=== PATIENT | female | born 1945 | race Caucasian/White ===

== ENCOUNTER 2019-05-10 11:38 | Outpatient (CLI) | payer MEDICARE, OTHER, SELFPAY ==
--- NOTE | ~2019-05-10 | MMUS_ITS ---
EXAMINATION: MM diagnostic naomi LT w stephanie, US breast LT limited HISTORY: Left breast mass on screening mammogram TECHNIQUE: Additional 3-D tomosynthesis images of the left breast were performed and synthetic 2-D im ages were generated. CAD analysis was submitted and interpreted. High resolution limited left breast ultrasound was performed. COMPARISON: 03/10/2019, 03/03/2018, 02/13/2017, 01/24/2016 BREAST PARENCHYMAL COMPOSITION: There are scattered areas of fibroglandular density. FINDINGS: MAMMOGRAPHIC FINDINGS: There is a 7 mm oval, obscured, equal density mass in the middle third of the upper outer quadrant of the breast at the 2:00 location 6 cm from the nipple. ULTRASOUND: There is an 8 mm x 7 mm oval, circumscribed, parallel, hypoechoic mass with posterior acoustic enhanc ement and no internal vascularity at the 2:00 location 7 cm from the nipple corresponding to the mamm ographic finding in question. IMPRESSION: 1. Likely complicated cyst of the upper outer left breast corresponding to the mammographic finding i n question. 2. Recommend 6 month follow-up left diagnostic mammogram and targeted ultrasound. BI-RADS category 3, probably benign findings. Reviewed, dictated and finalized at location A. INTERFACE DEVELOPER IMPRESSION: 1. Likely complicated cyst of the upper outer left breast corresponding to the mammographic finding in question. 2. Recommend 6 month follow-up left diagnostic mammogram and targeted ultrasoun d. BI-RADS category 3, probably benign findings.
== END 2019-05-10 11:39 | disposition home or self-care (01) ==
LOC: ANHIMG 11:46
DX: R92.8 Other abnormal and inconclusive findings on diagnostic imaging of breast (principal)
CPT/HCPCS: 76642; 77061; 77065; 77066; G0279

== ENCOUNTER 2019-11-08 11:32 | Outpatient (CLI) | payer MEDICARE, OTHER, SELFPAY ==
--- NOTE | ~2019-11-08 | MM_ITS ---
EXAMINATION: MM diagnostic naomi BI w stephanie HISTORY: Follow-up left breast mass TECHNIQUE: Additional 3-D tomosynthesis images of the breasts were performed and synthetic 2-D images were generated. CAD analysis was submitted and interpreted. COMPARISON: Comparison to multiple prior studies sequentially, with oldest reviewed study dated 01/05. BREAST PARENCHYMAL COMPOSITION: Breast composed of scattered areas of fibroglandular density FINDINGS: The breasts are stable without evidence for malignancy. Interval resolution of mass in the upper outer quadrant of the left breast corresponding to complicated cyst seen on previous ultrasound . No suspicious masses, calcifications or architectural distortion to suggest malignancy. IMPRESSION: 1. No mammographic evidence for malignancy in either breast. 2. Routine yearly screening mammogram and regular clinical breast examination are recommended. BI-RADS Category 1: Negative Reviewed, dictated and finalized at location A. IMPRESSION: 1. No mammographic evidence for malignancy in either breast. 2. Routine yearly screening mammogram and regular clinical breast examination a re recommended. BI-RADS Category 1: Negative
== END 2019-11-08 11:33 | disposition home or self-care (01) ==
DX: N63.21 Unspecified lump in the left breast, upper outer quadrant (principal)
CPT/HCPCS: 77062; 77066; G0279

== ENCOUNTER 2020-12-06 10:26 | Outpatient (CLI) | payer MEDICARE, OTHER, SELFPAY ==
--- NOTE | ~2020-12-06 | MM_ITS ---
EXAMINATION: MM screening [facility] BI w stephanie HISTORY: Screening TECHNIQUE: Craniocaudal and mediolateral oblique 3-D tomosynthesis images were obtained and synthetic 2-D images were generated. CAD analysis was submitted and interpreted. COMPARISON: Comparison to multiple prior studies sequentially, with oldest reviewed study dated 12/2016. BREAST PARENCHYMAL COMPOSITION: There are scattered areas of fibroglandular density. FINDINGS: There is no evidence of suspicious mass, calcification, or architectural distortion to sugg est malignancy in either breast. There has been no suspicious interval change. IMPRESSION: 1. No mammographic evidence of malignancy. 2. Recommend routine screening mammography in one year. BI-RADS Category 1: Negative Reviewed, dictated and finalized at location A.
== END 2020-12-06 10:27 | disposition home or self-care (01) ==
LOC: ANHIMG 10:31
DX: Z12.31 Encounter for screening mammogram for malignant neoplasm of breast (principal)
CPT/HCPCS: 77063; 77067

== ENCOUNTER 2022-11-11 09:35 | Outpatient (CLI) | payer MEDICARE, OTHER, SELFPAY ==
--- NOTE | 2022-11-11 12:24 | ECG_ITS ---
Measurements Intervals [place] Rate: 52 P: 87 UT: 170 QRS: 7 QRSD: 102 T: 42 QT: 441 QTc: 411 Interpretive Statements SINUS BRADYCARDIA OTHERWISE NORMAL ECG COMPARED TO ECG 06/03/2018 10:56:24 NO SIGNIFICANT CHANGES Electronically Signed On 11-11-2022 14:10:02 CDT by Eid Ace M.D.
[2022-11-11 13:55] LABS: Basophils Percent Auto 0.5 % (0.2-1.2); Eosinophils Absolute Auto 0.2 K/mm3 (0-0.3); Eosinophils Percent Auto 2.5 % (0-4.4); Hematocrit 39.4 % (37.0-47.0); Hemoglobin 12.7 g/dL (12.0-15.0); Immature Granulocyte Absolute 0.03 K/mm3 (0.00-0.031); Immature Granulocyte Percent A 0.4 % (0-0.5); Lymphocytes Absolute Auto 0.99 K/mm3 (0.9-3.2); Lymphocytes Percent Auto 12.8 % (18.3-44.2); Mean Corpuscular HGB Conc 32.2 g/dl (32-36); Mean Corpuscular Hemoglobin 30.9 pg (26-34); Mean Corpuscular Volume 95.9 fl (80-100); Mean Platelet Volume 9.8 fl (7.4-10.4); Monocytes Absolute Auto 0.6 K/mm3 (0.1-0.6); Monocytes Percent Auto 7.3 % (2.6-8.5); Neutrophils Absolute Auto 5.9 K/mm3 (1.3-6.7); Neutrophils Percent Auto 76.5 % (45.5-73.1); Platelet Count Result 212 k/mm3 (150-375); Red Blood Count 4.11 M/mm3 (4.2-5.4); Red Cell Distribution Width 13.2 % (11.5-14.5); White Blood Count 7.7 K/mm3 (4.5-10.0)
[2022-11-11 14:13] LABS: Anion Gap 6 mmol/L (8-16); Blood Urea Nitrogen 20 mg/dL (7-17); Calcium 9.8 mg/dL (8.4-10.2); Carbon Dioxide 30 mmol/L (22-30); Chloride 101 mmol/L (98-107); Estimated Glomerular Filt Rate > 60; Glucose 83 mg/dL (65-110); Potassium 3.9 mmol/L (3.4-5.0); Sodium 137 mmol/L (137-145)
== END 2022-11-11 09:36 | disposition home or self-care (01) ==
LOC: ANHSURGERY 09:45
PROVIDERS: Anesthesiology; PCP Internal Medicine; Visit Provider Orthopaedic Surgery
DX: Z01.818 Encounter for other preprocedural examination (principal); Z51.81 Encounter for therapeutic drug level monitoring; M12.811 Other specific arthropathies, not elsewhere classified, right shoulder; I10 Essential (primary) hypertension; M75.101 Unspecified rotator cuff tear or rupture of right shoulder, not specified as traumatic; R00.1 Bradycardia, unspecified
CPT/HCPCS: 36415; 80048; 85025; 87081; 93005

== ENCOUNTER 2022-12-10 00:46 | Day surgery (SDC) | payer MEDICARE, OTHER, SELFPAY ==
[2022-11-11 11:33] VITALS: BMI 27.4
--- NOTE | 2022-11-11 12:01 | PC.NURSE ---
Report to the Outpatient Waiting Room, entrance under the green pavilion located off [facility], at time __10:00AM on date __12/10/22 . Planned Procedure Time: ___12:00PM . Time changes happen often and if your time is changed the preop area will call you the afternoon before. - You and your visitor will be asked to self-screen and do not enter if you have any COVID symptoms. - A mask is optional within the hospital at this time. Patients may have clear liquids (water, carbonated beverages, clear teas, apple juice) until 3 hours prior to surgery with a maximum of 20 ounces. - No food from midnight until time of surgery Take the following medications with a SIP of water the morning of surgery: ___AMLODIPINE, METHIMAZOLE DO NOT STOP ANY OF YOUR OTHER PRESCRIPTION MEDICATIONS PRIOR TO SURGERY ?EXCEPT THE FOLLOWING Medications to discontinue per physician ___HOLD ASPIRIN AND ADVIL 7 DAYS PRE-OP PER DR CORREIA- LAST DOSE 12/03/22 HOLD ALL VITAMINS/SUPPLEMENTS 3 DAYS PRE-OP PER ANESTHESIA- LAST DOSE 12/06/22 Please no make-up, nail wolof, hairspray, perfume, deodorant, or body powder the day of surgery. No jewelry (including any body piercings) or valuables the day of surgery, leave them at home. Please take a shower or bath the night before, or the morning of, surgery with an antibacterial soap. Wear comfortable, loose fitting clothing. Children are encouraged to wear pajamas. - Jewelry must be removed prior to entering the operating room. Rings and piercings that are not removed may be cut off. - The hospital will not accept responsibility for valuables. - Please leave all valuables, including medications, at home the day of surgery. If you are going home after surgery, a licensed mail truck driver must drive you home. - NO public transportation without another adult if you receive anesthesia. - We recommend that an adult stay with you for 24 hours following discharge. - We also recommend that you do not drive, make important decision, drink alcoholic beverages, or take any drugs that were not prescribed by your health care provider for at least 24 hours after your discharge time. Follow any additional instructions given to you from your surgeon. If you or anyone in your household have experienced Covid symptoms in the past week, please notify your surgeon or the nurse liaison at the phone number below for possible testing. Telephone instructions given to __PATIENT and asked if any additional questions and then verbalized understanding. Patient advised to call surgeon office or pre surgery nurse liaison [phone] if any additional questions.
[2022-11-11 12:31] VITALS: BP 151/54; PULSE 54; RESP 16; TEMP 36.6; O2SAT 100
[2022-12-10] VITALS (14 sets, daily range): BP systolic 122–152; BP diastolic 58–75; PULSE 50–67; RESP 12–18; TEMP 36–36.6; O2SAT 96–100
--- NOTE | ~2022-12-10 | XR_ITS ---
EXAMINATION: XR shoulder RT min 2V DATE: 12/10/2022 10:15 INDICATION: Right reverse total shoulder arthroplasty TECHNIQUE: AP and transscapular Y views of the right shoulder were obtained. COMPARISON: 05/29/2022 FINDINGS: Interval placement of a reverse right total shoulder arthroplasty which appears well seated in near a natomic alignment. No fracture identified. Moderate acromioclavicular osteoarthritis. Subacromial spu rs and adjacent small heterotopic ossicles. There are couple circular opacities likely external to th e patient which project over the right supraclavicular region and lower portion of the right upper ar m. There are bridging osteophytes at multiple levels in the spine, consistent with diffuse idiopathic skeletal hyperostosis (DISH). Soft tissues are unremarkable. Visualized portion of the lungs are cl ear. IMPRESSION: Reverse right total shoulder arthroplasty in near-anatomic alignment without acute osseous abnormalit y. Reviewed, dictated and finalized at location A. IMPRESSION: Reverse right total shoulder arthroplasty in near-anatomic alignment without ac barbara osseous abnormality.
[2022-12-10] MEDS: ACETAMINOPHEN 500 MG TABLET 1000 MG PO ×4 (06:31→23:38)
--- NOTE | 2022-12-10 06:48 | WPDANESEPPF ---
Anes - Initial Pre Proc Eval Procedure: Operation Date: 12/10/22 07:30 Proposed Procedures p Right Reverse Total Shoulder Arthroplasty - Renzo Odell MD Date/Time: 12/10/22 06:48 Surgeon: Renzo Odell MD Pre Op Diagnosis: right rotator cuff arthropathy Patient Data Age: 77 Gender: F Height: 1.63 m Weight: 72.5 kg Last Vital Signs Temp 36.6 C 11/11/22 12:31 Pulse 54 L 11/11/22 12:31 Resp 16 11/11/22 12:31 BP 151/54 H 11/11/22 12:31 Pulse Ox 100 11/11/22 12:31 O2 Del Method Room Air 11/11/22 12:31 Allergies Allergy/AdvReac Type Severity Reaction Status Date / Time Sulfa (Sulfonamide Allergy Severe Itching, Verified 12/02/22 10:01 Antibiotics) N/V morphine AdvReac Severe LIGHTHEADED/PASSING Verified 12/02/22 10:01 OUT/N/V Home Medications Medication Instructions Recorded Confirmed Type Bifidobacterium infantis 4 mg 4 mg PO DAILY 05/29/22 12/10/22 History capsule (Align) amlodipine 5 mg tablet 5 mg PO QAM 05/29/22 12/10/22 History aspirin 81 mg tablet,delayed 81 mg PO DAILY 05/29/22 12/10/22 History release atorvastatin 40 mg tablet 40 mg PO HS 05/29/22 12/10/22 History cholecalciferol (vitamin D3) 25 50 mcg PO DAILY 05/29/22 12/10/22 History mcg (1,000 unit) capsule famotidine 20 mg tablet (Pepcid) 20 mg PO DAILY PRN Indigestion 05/29/22 12/10/22 History hydrochlorothiazide 25 mg tablet 25 mg PO QAM 05/29/22 12/10/22 History mecobalamin (vitamin B12) 500 mcg 500 mcg PO DAILY 05/29/22 12/10/22 History chewable tablet mesalamine 1.2 gram tablet,delayed 2.4 g PO QACDINNER 05/29/22 12/10/22 History release methimazole 5 mg tablet 5 mg PO EVERY OTHER DAY 05/29/22 12/10/22 History multivitamin (Daily Multi-Vitamin 1 tablet PO DAILY 05/29/22 12/10/22 History tablet) psyllium husk 3.4 gram/5.4 gram 1 tsp PO DAILY 05/29/22 12/10/22 History oral powder (Metamucil) acetaminophen 500 mg capsule 500 mg PO Q6H PRN Pain 11/11/22 12/10/22 History calcium 600 mg capsule 600 mg PO BID 11/11/22 12/10/22 History ibuprofen 200 mg tablet (Advil) 400 mg PO QAM 11/11/22 12/10/22 History methimazole 5 mg tablet 7.5 mg PO EVERY OTHER DAY 11/11/22 12/10/22 History potassium chloride 10 mEq 20 meq PO QAM 11/11/22 12/10/22 History tablet,extended release ramipril 10 mg capsule 10 mg PO QAM 11/11/22 12/10/22 History vit C 250 mg-vit E 90 mg-zinc 40 1 tablet PO BID 11/11/22 12/10/22 History mg-copper 1 [id number] capsule (PreserVision AREDS-2) Patient hx anesthesia problems: none Family hx anesthesia problems: none Results Review: All pre-operative results and documents have been reviewed as part of the pre-operative evaluation. [facility] Past Medical History Medical History Kidney stones (~09/09/11) Surgical History Surgical History H/O carpal tunnel repair (~10/15/18) RT HAND H/O carpal tunnel repair (~01/02/22) LEFT HAND H/O: hysterectomy (~05/31/14) History of left knee replacement (~12/30/11) History of nephrectomy, left (~08/20/12) Family History Family History Father Leukemia Mother Arthritis Social History Social History Smoking status: Never smoker Alcohol intake: never Substance use: never Lack of Transportation: No Lack of Food: Never True Current Housing: I Have Housing Concerned About Future Housing: No Difficulty Paying Gas/Electric Bills: No Difficulty Paying for Meds: No Currently Unemployed: No Education: Bachelor's Degree Difficulty w/ Childcare or Family Care: No Living arrangements: alone Spiritual care concerns: No Anes - Eval Final PreProcedure Day of Procedure 12/10/22 06:48 Patient weight: overweight Heart: regular rate and rhythm Patricia
[2022-12-10] MEDS: LACTATED RINGERS 1,000 ML 30 ML IV CONT ×2 (06:55→10:01)
--- NOTE | 2022-12-10 06:57 | WPDANESPNB ---
Anes - Peripheral Nerve Block Date/Time: 12/10/22 06:57 I have discussed with the patient/family/POA the placement of a peripheral nerve block for post-operative pain management, including associated risks, benefits, complications, and side effects. Alternative methods of post-operative analgesia were detailed. Questions were solicited and answers provided to the satisfaction of the patient/family/POA. Time-Out: A pre-procedural Time-Out was completed immediately before starting the procedure and confirmed: Patient Identification, Site, Procedure, Patient Position and the Availability of Requisite Equipment. Clinical Indications: Acute post-operative pain management requested by the operative surgeon. Nerve Block Insertion Note Anes-nerve block: interscalene right Patient position: supine Skin prep: chlorhexidine Needle: 22 gauge, stimulating, insulated echogenic needle. Needle length: 50 mm Technique: ultrasound Injectate: bupivacaine 0.5% with epi 5 mcg/ml (30cc- no epi) Observations: tolerated well Complications: none Procedure start time:: 718 Procedure end time:: 723
--- NOTE | 2022-12-10 07:24 | WPDHPUPDATE1 ---
History and Physical Update Update Date/Time: 12/10/22 07:24 History and Physical has been reviewed, including an updated exam of the patient. There are NO changes in the patient's condition. Risks, benefits, and alternatives have been discussed and questions answered. Patient agrees to proceed with procedure.
[2022-12-10] MEDS: TRANEXAMIC ACID 1,000MG/ISO100 1,000 MG/100 ML BAG 200 MG IVPB (07:30)
[2022-12-10] MEDS: ceFAZolin 2 GM/D5W 50 ML 2 GM/50 ML BAG IVPB ×3 (07:59→23:38)
[2022-12-10] MEDS: VANCOMYCIN HCL 1,000 MG VIAL 1000 MG TOPICAL (08:54)
--- NOTE | 2022-12-10 12:11 | ADMGEN ---
This patient, Gerri Bueno, was admitted to 2 Medical Room 258-. Patient/family oriented to hospital policies and general routines including ID bracelet, bed and alarms, visiting hours, pain management, procedures, bathroom and other care routines, personal items, smoking policy, room service/diet, and visiting hours. Information on how to activate the Rapid Response Team has been discussed. Patient/Family are encouraged to report perceived risks to care and to ask questions if they do not understand what they are told or what they should do.
[2022-12-10] MEDS: ONDANSETRON INJ 4 MG/2 ML VIAL IV PUSH (12:42)
[2022-12-10] MEDS: SODIUM CHLORIDE 0.9% IV 1,000 ML 125 ML IV CONT (12:45)
--- NOTE | 2022-12-10 13:17 | WPDCN ---
Assessment and Plan Assessment and plan (1) Right rotator cuff tear arthropathy: Code(s): M75.101 - Unspecified rotator cuff tear or rupture of right shoulder, not specified as traumatic; M12.811 - Other specific arthropathies, not elsewhere classified, right shoulder Status: Acute Assessment and Plan: Postoperative day 0 status post reversal shoulder arthroplasty. Wound care, pain control, DVT prophylaxis deferred to ortho. (2) Hypertension: Code(s): I10 - Essential (primary) hypertension Status: Acute Assessment and Plan: Blood pressures were reviewed and they have been stable postoperatively. Resume antihypertensives and monitor daily. (3) Hyperlipidemia: Code(s): E78.5 - Hyperlipidemia, unspecified Status: Acute Assessment and Plan: Continue statin and check LFTs in a.m.. (4) Hyperthyroidism: Code(s): E05.90 - Thyrotoxicosis, unspecified without thyrotoxic crisis or storm Status: Acute Assessment and Plan: No signs of acute issues. Check TSH, T4, and continue methimazole. (5) Ulcerative colitis: Code(s): K51.90 - Ulcerative colitis, unspecified, without complications Status: Acute Assessment and Plan: No acute issues. Continue mesalamine. Plan Thank you for allowing us to participate in this patient's care. Please do not hesitate to contact us with any questions. HPI Data of Consult Date/Time: 12/10/22 13:15 Requesting Physician: Renzo Odell MD Consult Narrative Reason for consult: Postoperative medical management. Narrative: This is a very pleasant 77-year-old female with osteoarthritis, hypertension, hyperlipidemia, hyperthyroidism, and ulcerative colitis whom the hospitalist service has been consulted for help managing her medical conditions postoperatively. She reports longstanding pain in her right shoulder not amenable to conservative outpatient treatment she elected for replacement today. Her surgery was performed under general anesthesia with regional block. No immediate complications were documented an estimated blood loss was 100 mL. She was nauseated after surgery and she has not had much of an appetite. Her pain is pretty well controlled. She denies fever, chills, sweats, chest pain, shortness a breath, and vomiting. She lives alone and does not have much help available to her and she is hoping to go to rehab on discharge. Review of Systems Review of Systems: Twelve systems were reviewed. No fever, chills, or sweats. No recent cold or flu symptoms. No history of venous thromboembolism. Except as documented, all other systems were reviewed and are negative. [facility] Past Medical History Medical History (Updated 12/10/22 @ 21:18 by Odette Jalloh PA-C) Arthritis Cancer of kidney (2012) Status post nephrectomy. Endometrial cancer (2014) Hyperlipidemia Hypertension Hyperthyroidism Kidney stones Ulcerative colitis Surgical History Surgical History (Updated 12/10/22 @ 13:23 by Odette Jalloh PA-C) History of arthroplasty of right knee (11/2004) History of carpal tunnel release History of cataract extraction with lens replacement History of cystoscopy History of hysterectomy History of left knee replacement (12/30/11) History of left nephrectomy (08/20/12) History of lithotripsy History of total abdominal hysterectomy and bilateral salpingo-oophorectomy (2014) History of ureter stent Family History Family History Father Leukemia Mother Arthritis Social History Social History (Updated 12/10/22 @ 13:25 by Odette Jalloh PA-C) Social History: Surrogate medical decision maker: Dania Moser, sibling. Code status: Full code. Smoking status: Never smoker Second hand tobacco smoke exposure: No Alcohol intake: never Substance use: never Lack of Transportation: No Lack of F
--- NOTE | 2022-12-10 13:57 | W.PM.PROC2 ---
Procedure Note - Detailed Date of Procedure 12/10/22 Pre-op Diagnosis right rotator cuff arthropathy Post-op Diagnosis Same Procedure Performed Reverse total shoulder arthroplasty, right. Surgeon Renzo Odell MD [employer] Debra Alfaro PA-C Anesthesia General and Regional (Interscalene block.) Findings Massive cuff tear with moderate superior and posterior glenoid wear. Bone quality satisfactory. Humeral head bone graft added to the humerus and upsized to size 1. Deltoid intact. Cephalic vein suture ligated. Description of Procedure The patient was given an interscalene block in the preoperative area. Preoperative antibiotics were given. The patient was transferred to the operating room and a general anesthetic was administered. The beach chair position was used at 45 degrees. All bony prominences were padded. The head was carefully stabilized on the [facility] head of marketing. A sterile prep and drape was performed in the usual manner with ChloraPrep. A longitudinal incision was created at the anterior shoulder just lateral to the deltopectoral interval. Hydrogen peroxide was placed on the incision and then rinsed after one minute. Careful dissection was performed to expose the interval and protect the cephalic vein. The vein was retracted medially. The upper border of the pectoralis was released. Anterior circumflex vessel branches were suture ligated. A subscapularis peel was performed. The inferior capsule was released, exposing the humeral head. Osteophytes were removed. Care was taken to stay on bone to protect the axillary nerve. The anatomic head cut was taken with the oscillating saw. The guide pin was placed, central drilling performed, and the broach trial inserted. The neck anteversion and inclination were carefully assessed. The cut protector was placed, and attention was turned to the glenoid. Retractors were placed. Releases were carried out for exposure. The subscapularis was mobilized, the inferior capsule and long head of triceps released, and the superior and middle glenohumeral ligaments released as well. Labral tissue was resected as needed. The sizing template was used to assess the baseplate position low on the glenoid. A guide pin was placed. Minimal reaming was used to accomplish a flat surface without violating the subchondral bone. Version was corrected according to preoperative templating. The boss was drilled, and the real component was impacted into position. Supplemental locking screws were placed centrally, superiorly, and 2 inferiorly. The glenosphere was impacted into the taper. The proximal humerus was reamed for the inset component. The humeral components were trialed. The real humeral stem, tray, and insert were impacted into position. The shoulder was copiously irrigated periodically with pulsatile lavage. The shoulder was reduced and stability confirmed. 1 gram of Vancomycin powder was placed in the joint. The pectoralis tendon was repaired. The deltopectoral space was reapproximated with number 1 Vicryl. The remaining tissue was closed with 0 Quill and 2-0 Quill running suture and steri-strips. A sterile silver occlusive dressing and shoulder immobilizer were placed. The patient was transferred to the recovery room. Physician help desk assistant, Debra Alfaro PA-C, required for surgery; including patient positioning, draping, tissue retraction, maintaining instrument position, wound closure, and dressing placement. Implants Shoulder Innovations reverse TSA size 1 stem. +0 polyethylene insert. 10 degree augmented baseplate. 33+3 mm glenosphere. Estimated Blood Loss -100.0 Drains No Pathology None sent Complications No immediate complications Condition Stable Disposition PACU [facility] Billing Surgery - Charge Forward: Surgery Billing
[2022-12-10] MEDS: CALCIUM CARBONATE (OSCAL) 500 MG TABLET PO (17:50)
[2022-12-10] MEDS: MELOXICAM 7.5 MG TABLET PO (17:50)
[2022-12-10] MEDS: ASPIRIN 81 MG ENTERIC TABLET PO (17:50)
[2022-12-10] MEDS: SENNA/DOCUSATE SODIUM TABLET 2 TAB PO (20:25)
[2022-12-10] MEDS: ATORVASTATIN 40 MG TABLET PO (20:25)
[2022-12-11 00:12] VITALS: BP 143/69; PULSE 53; RESP 18; TEMP 36.2; O2SAT 99
[2022-12-11 05:02] VITALS: BP 150/60; PULSE 54; RESP 20; TEMP 36.3; O2SAT 99
[2022-12-11] MEDS: ACETAMINOPHEN 500 MG TABLET 1000 MG PO ×3 (05:23→17:14)
[2022-12-11] MEDS: oxyCODONE HCL (*CRX) 5 MG TAB IR PO (05:23)
[2022-12-11 05:42] LABS: Basophils Percent Auto 0.3 % (0.2-1.2); Eosinophils Absolute Auto 0.1 K/mm3 (0-0.3); Eosinophils Percent Auto 0.6 % (0-4.4); Hematocrit 32.5 % (37.0-47.0); Hemoglobin 10.5 g/dL (12.0-15.0); Immature Granulocyte Absolute 0.03 K/mm3 (0.00-0.031); Immature Granulocyte Percent A 0.3 % (0-0.5); Lymphocytes Absolute Auto 0.77 K/mm3 (0.9-3.2); Lymphocytes Percent Auto 8.9 % (18.3-44.2); Mean Corpuscular HGB Conc 32.3 g/dl (32-36); Mean Corpuscular Hemoglobin 31.3 pg (26-34); Mean Platelet Volume 9.9 fl (7.4-10.4); Monocytes Absolute Auto 0.9 K/mm3 (0.1-0.6); Monocytes Percent Auto 10.7 % (2.6-8.5); Neutrophils Absolute Auto 6.8 K/mm3 (1.3-6.7); Neutrophils Percent Auto 79.2 % (45.5-73.1); Platelet Count Result 157 k/mm3 (150-375); Red Blood Count 3.35 M/mm3 (4.2-5.4); White Blood Count 8.6 K/mm3 (4.5-10.0)
[2022-12-11 05:57] LABS: Alanine Aminotransferase 15 U/L (6-35); Albumin Level 3.1 g/dL (3.5-5.1); Alkaline Phosphatase 67 U/L (38-126); Anion Gap 5 mmol/L (8-16); Aspartate Amino Transferase 22 U/L (14-36); Bilirubin,Total 0.8 mg/dL (0.2-1.3); Blood Urea Nitrogen 15 mg/dL (7-17); Calcium 8.3 mg/dL (8.4-10.2); Carbon Dioxide 26 mmol/L (22-30); Chloride 104 mmol/L (98-107); Estimated CRCL calculation 65 ml/min; Estimated Glomerular Filt Rate > 60; Glucose 89 mg/dL (65-110); Magnesium 1.9 mg/dL (1.6-2.3); Potassium 3.5 mmol/L (3.4-5.0); Sodium 135 mmol/L (137-145)
[2022-12-11 06:31] LABS: Free T4 Free Thyroxine 1.07 ng/mL (0.78-2.19)
--- NOTE | 2022-12-11 07:27 | PM.IMPN ---
Progress Note: A&P Assessment and Plan (1) Right rotator cuff tear arthropathy: Code(s): M75.101 - Unspecified rotator cuff tear or rupture of right shoulder, not specified as traumatic; M12.811 - Other specific arthropathies, not elsewhere classified, right shoulder Status: Acute Assessment and Plan: Postoperative day 1 status post reversal shoulder arthroplasty. Wound care, pain control, DVT prophylaxis deferred to ortho. Working with PT/OT On track to go to [facility] for rehab (2) Hypertension: Code(s): I10 - Essential (primary) hypertension Status: Acute Assessment and Plan: Blood pressures were reviewed and they have been stable postoperatively. Resume antihypertensives and monitor daily. (3) Hyperlipidemia: Code(s): E78.5 - Hyperlipidemia, unspecified Status: Acute Assessment and Plan: Continue statin and check LFTs in a.m. (4) Hyperthyroidism: Code(s): E05.90 - Thyrotoxicosis, unspecified without thyrotoxic crisis or storm Status: Acute Assessment and Plan: No signs of acute issues. Check TSH, T4, and continue methimazole. (5) Ulcerative colitis: Code(s): K51.90 - Ulcerative colitis, unspecified, without complications Status: Acute Assessment and Plan: No acute issues. Continue mesalamine. Plan Thank you for allowing us to participate in this patient's care. Please do not hesitate to contact us with any questions. Subjective Date/time seen: 12/11/22 07:27 Interval history: HPI obtained from the chart, This is a very pleasant 77-year-old female with osteoarthritis, hypertension, hyperlipidemia, hyperthyroidism, and ulcerative colitis whom the hospitalist service has been consulted for help managing her medical conditions postoperatively. She reports longstanding pain in her right shoulder not amenable to conservative outpatient treatment she elected for replacement today. Her surgery was performed under general anesthesia with regional block. No immediate complications were documented an estimated blood loss was 100 mL. She was nauseated after surgery and she has not had much of an appetite. Her pain is pretty well controlled. She denies fever, chills, sweats, chest pain, shortness a breath, and vomiting. She lives alone and does not have much help available to her and she is hoping to go to rehab on discharge. 12/11: Patient is doing well postoperatively. She has already worked with physical therapy this morning. She is having pain which is more than she expected since her nerve block has worn off. She says that her pain medication does seem to help some. I encouraged her to stay on top of her pain. It appears she has only had one 5 mg of Oxy so far. Yesterday she had some nausea but today she was able to eat part of an exam which and some nielsen for breakfast without nausea or vomiting. She says that she has been able to void postoperatively. Her right arm is in a sling with ice applied and elevated. She has no acute concerns at this time. She says that she has agreed for [facility] re[facility] placement Review of Systems Review of Systems: All systems reviewed & are unremarkable except as noted in HPI and below Exam Narrative: General: well appearing, well developed, well nourished, appears stated age. HEENT: normocephalic, atraumatic. Mucous membranes moist. EOMI, PERRLA, bilateral sclera anicteric, no conjunctival injection. Neck supple without JVD, lymphadenopathy, or bruit. Respiratory: clear to auscultation bilaterally. No rales/rhonic/wheezes. Cardiovascular: Regular rate and rhythm, normal S1-S2 upon auscultation. No murmurs, rubs, or clicks. PMI is nondisplaced, capillary re-fill less than 3 second. Abdomen: Soft, flat, no pulsatile masses, non-distended and non-tender. No rebound, no guarding. No CVA tenderness, no hepatosplenomegaly. Bowel sounds present to all four quadrants. No
[2022-12-11 08:00] VITALS: PULSE 50; RESP 16; O2SAT 100
--- NOTE | 2022-12-11 08:28 | PM.PNORT ---
Progress Note: A&P Assessment and Plan (1) Right rotator cuff tear arthropathy: Code(s): M75.101 - Unspecified rotator cuff tear or rupture of right shoulder, not specified as traumatic; M12.811 - Other specific arthropathies, not elsewhere classified, right shoulder Status: Acute (2) Status post reverse total arthroplasty of right shoulder: Code(s): Z96.611 - Presence of right artificial shoulder joint Status: Acute Plan Postop day 1: Right reverse total shoulder arthroplasty. Patient is progressing well from surgery. Block has warn off. Pain controlled. She is having trouble ambulating. She typically relies heavily on pushing herself up with her arms but is unable to do that with her shoulder replacement. 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 She lives at home and does not think she can perform normal daily tasks. She would benefit from inpatient rehab at discharge. Care-coordination is consulted. Continue PT/OT. Subjective Subjective Date/Time Seen: 12/11/22 08:28 Interval history: Patient resting comfortably in bed. Patient having trouble ambulating. Mild pain. Block has warn off. No numbness or tingling. No CP, SOB, ABD pain. Review of Systems Review of Systems: All systems reviewed & are unremarkable except as noted in HPI and below Exam Narrative: Normal weight 77 y/o Female. Resting comfortably in chair. Wearing sling. Dressing dry and intact with no drainage. Moderate swelling. Moderate ecchymosis. No erythema. No hematoma. Range of motion limited due to pain. Neurologic status intact. No varicosities. Distal pulses palpable. Objective Data Vital Signs Vital Signs: Vital Signs - 24 hr 12/10/22 10:01 12/10/22 10:15 12/10/22 10:30 Temperature 97.4 F L Pulse Rate 67 58 L 56 L Respiratory Rate 12 13 15 Blood Pressure 129/58 L 146/71 H 133/75 Pulse Oximetry 98 100 100 Oxygen Delivery Simple Face Mask Simple Face Mask Room Air Oxygen Flow Rate 6 10 12/10/22 10:45 12/10/22 11:00 12/10/22 11:15 Temperature Pulse Rate 52 L 50 L 50 L Respiratory Rate 13 14 13 Blood Pressure 145/64 H 142/64 H 142/69 H Pulse Oximetry 96 96 96 Oxygen Delivery Room Air Room Air Room Air Oxygen Flow Rate 12/10/22 11:45 12/10/22 12:00 12/10/22 12:30 Temperature 96.8 F L 96.9 F L 97.0 F L Pulse Rate 53 L 54 L 62 Respiratory Rate 14 14 16 Blood Pressure 136/61 127/59 L 142/63 H Pulse Oximetry 98 99 99 Oxygen Delivery Oxygen Flow Rate 12/10/22 13:45 12/10/22 13:30 12/10/22 18:30 Temperature 97.6 F 97.7 F Pulse Rate 54 L 51 L Respiratory Rate 16 14 Blood Pressure 122/60 129/59 L Pulse Oximetry 100 100 Oxygen Delivery Room Air Oxygen Flow Rate 12/10/22 20:37 12/10/22 21:41 12/11/22 00:12 Temperature 97.3 F L 97.2 F L Pulse Rate 50 L 53 L Respiratory Rate 18 18 Blood Pressure 151/66 H 143/69 H Pulse Oximetry 99 99 99 Oxygen Delivery Room Air Oxygen Flow Rate 12/11/22 05:02 Temperature 97.4 F L Pulse Rate 54 L Respiratory Rate 20 Blood Pressure 150/60 H Pulse Oximetry 99 Oxygen Delivery Oxygen Flow Rate Intake/Output Intake/Output: Intake & Output 12/08/22 12/09/22 12/10/22 12/11/22 23:59 23:59 23:59 23:59 Intake Total 2100 290 Output Total 200 Balance 2100 90 Meds/Results Medications: Active Medications Generic Name Dose Route Start Last Admin Trade Name Freq PRN Reason Stop Dose Admin Acetaminophen 1,000 mg 12/10/22 12:00 12/11/22 05:23 Acetaminophen 500 Mg Tablet PO 1,000 mg Q6HR CARLOS Administration Amlodipine Besylate 5 mg 12/11/22 09:00 Amlodipine Besylate 5 Mg Tablet PO QAM [facility] Aspirin 81 mg 12/10/22 17:00 12/10/22 17:50 Aspirin 81 Mg Enteric Tablet PO 81 mg BID CARLOS Administration Atorvastatin Calcium 40 mg 12/10/22 21:00 12/10/22 20:25 Atorvastatin 40 Mg Tablet PO 40 mg HS [facility]
[2022-12-11] MEDS: ramipriL 5 MG CAPSULE 10 MG PO (08:38)
[2022-12-11] MEDS: FAMOTIDINE 20 MG TABLET PO (08:39)
[2022-12-11] MEDS: ASPIRIN 81 MG ENTERIC TABLET PO ×2 (08:39→17:14)
[2022-12-11] MEDS: CHOLECALCIFEROL 1,000 UNITS TABLET 2000 UNITS PO (08:39)
[2022-12-11] MEDS: MELOXICAM 7.5 MG TABLET PO ×2 (08:39→17:14)
[2022-12-11] MEDS: methiMAzole 5 MG TAB PO (08:39)
[2022-12-11] MEDS: hydroCHLOROthiazide 25 MG TABLET PO (08:39)
[2022-12-11] MEDS: POTASSIUM CHLORIDE 20 MEQ ER TABLET PO (08:39)
[2022-12-11] MEDS: CALCIUM CARBONATE (OSCAL) 500 MG TABLET PO ×2 (08:39→17:14)
[2022-12-11] MEDS: SENNA/DOCUSATE SODIUM TABLET 2 TAB PO (08:39)
[2022-12-11] MEDS: polyethylene glycoL 3350 17 GM POWD.PACK PO (08:40)
[2022-12-11] MEDS: ceFAZolin 2 GM/D5W 50 ML 2 GM/50 ML BAG IVPB (08:40)
[2022-12-11] MEDS: amLODIPine BESYLATE 5 MG TABLET PO (08:41)
[2022-12-11 09:41] LABS: Free T4 Free Thyroxine Reflex 1.04 ng/dL (0.78-2.19)
[2022-12-11 10:00] VITALS: BP 118/43; PULSE 50; RESP 16; TEMP 36.6; O2SAT 100
[2022-12-11 10:45] LABS: Total Triiodothyronine (T3) 0.86 NG/ML (0.97-1.69)
[2022-12-11] MEDS: traMADol HCL (*CRX) 50 MG TABLET PO (11:24)
--- NOTE | 2022-12-11 13:25 | WPDANESPN ---
Anes - Prog Note Post-Op Date/Time: 12/11/22 13:25 Cardiovascular status: normal Respiratory status: normal Airway patency: baseline Mental status: baseline Post-Op hydration status: normal Vital Signs: Last Vital Signs Temp 36.6 C 12/11/22 10:00 Pulse 50 L 12/11/22 10:00 Resp 16 12/11/22 10:00 BP 118/43 L 12/11/22 10:00 Pulse Ox 100 12/11/22 10:00 O2 Del Method Room Air 12/11/22 08:00 O2 Flow Rate 10 12/10/22 10:15 Pain Score (VAS): 05/17 I/O: Intake & Output 12/10/22 12/11/22 12/11/22 23:59 07:59 15:59 Intake Total 1250 290 120 Output Total 200 Balance 1250 90 120 Laboratory Tests 12/11/22 04:56 12/11/22 04:56 12/11/22 12/11/22 04:56 04:56 WBC 8.6 RBC 3.35 L Hgb 10.5 L Hct 32.5 L MCV 97.0 MCH 31.3 MCHC 32.3 RDW 13.0 Plt Count 157 MPV 9.9 Immature Gran % (Auto) 0.3 Neut % (Auto) 79.2 H Lymph % (Auto) 8.9 L [place] % (Auto) 10.7 H Eos % (Auto) 0.6 Baso % (Auto) 0.3 Lymph # (Auto) 0.77 L [place] # (Auto) 0.9 H Eos # (Auto) 0.1 Baso # (Auto) 0.0 Abs Immat Gran (auto) 0.03 Absolute Neuts (auto) 6.8 H Absolute Nucleated RBC 0.0 Nucleated RBC % 0.0 Sodium 135 L Potassium 3.5 Chloride 104 Carbon Dioxide 26 Anion Gap 5 L BUN 15 D Creatinine 0.60 L Estim Creat Clear Calc 65 Estimated GFR > 60 Glucose 89 Calcium 8.3 L Magnesium 1.9 Total Bilirubin 0.8 Direct Bilirubin 0.0 AST 22 ALT 15 Alkaline Phosphatase 67 Total Protein 6.0 L Albumin 3.1 L TSH (Reflex) 0.160 L Free T4 1.07 1.04 Total T3 0.86 L Post-procedural complaints: none Patient Feedback: Patient satisfied with anesthetic care. Other Findings: patient reports regional nerve block offered great pain relief
--- NOTE | 2022-12-11 13:45 | PM.DS ---
DS: Admitting Diagnosis Discharge Date 12/11/22 Admitting Diagnosis Rotator cuff arthropathy. DS: Discharge Diagnosis Discharge Diagnosis (1) Status post reverse total arthroplasty of right shoulder: Code(s): Z96.611 - Presence of right artificial shoulder joint Status: Acute Assessment and Plan: Postop day 1: Right reverse total shoulder arthroplasty. Patient tolerated procedure well. No complications. Pain manageable with pain medication. No numbness or tingling. Patient has trouble ambulating and typically requires a walker. She relies on her shoulders to lift herself out of a chair. She lives at home by herself. She will benefit from acute rehab. We had a lengthy discussion regarding postoperative wound care, limitations, expectations, and exercises. Patient shows good understanding. He has had initial physical therapy and is tolerating it well. DVT prophylaxis: 81 mg baby aspirin b.i.d. for 14 days. Pain medication: Percocet. Ibuprofen. Patient has followup appointment with Dr. Odell in 3 weeks. DS: Summary Hospital Course Hospital Course: Patient tolerated procedure well, without complications. Patient has had OT/PT. Tolerating it well. Will benefit from acute rehab. Status at Discharge Functional status at discharge: independent ambulation Overall status at discharge: patient is progressing back to baseline Time Spent with Patient Time attestation: Total time spent providing and/or coordinating discharge services: Exam Narrative: Normal weight Female. Resting comfortably in bed. Wearing sling. Dressing dry and intact with no drainage. Moderate swelling. Moderate ecchymosis. No erythema. No hematoma. Range of motion limited due to pain. Calf nontender. Neurologic status intact. No varicosities. Distal pulses palpable. DS: Data Data Completed and Pending Labs on day of discharge: Labs from last 24 hours 12/11/22 12/11/22 04:56 04:56 WBC 8.6 RBC 3.35 L Hgb 10.5 L Hct 32.5 L MCV 97.0 MCH 31.3 MCHC 32.3 RDW 13.0 Plt Count 157 MPV 9.9 Immature Gran % (Auto) 0.3 Neut % (Auto) 79.2 H Lymph % (Auto) 8.9 L [place] % (Auto) 10.7 H Eos % (Auto) 0.6 Baso % (Auto) 0.3 Lymph # (Auto) 0.77 L [place] # (Auto) 0.9 H Eos # (Auto) 0.1 Baso # (Auto) 0.0 Abs Immat Gran (auto) 0.03 Absolute Neuts (auto) 6.8 H Absolute Nucleated RBC 0.0 Nucleated RBC % 0.0 Sodium 135 L Potassium 3.5 Chloride 104 Carbon Dioxide 26 Anion Gap 5 L BUN 15 D Creatinine 0.60 L Estim Creat Clear Calc 65 Estimated GFR > 60 Glucose 89 Calcium 8.3 L Magnesium 1.9 Total Bilirubin 0.8 Direct Bilirubin 0.0 AST 22 ALT 15 Alkaline Phosphatase 67 Total Protein 6.0 L Albumin 3.1 L TSH (Reflex) 0.160 L Free T4 1.04 1.07 Total T3 0.86 L Discharge Plan Discharge Patient Disposition: Home, Self-Care Discharge Instructions: See green instruction sheets Stand Alone Forms: General Discharge Instructions Follow-up/Referrals: Debra Alfaro PA [[facility]] - Discharge Medications: New aspirin 81 mg tablet,delayed release (DR/EC) 81 mg PO BID 14 Days Qty: 28 0RF oxycodone-acetaminophen 5-325 mg tablet 1 - 2 tablet PO Q4-6H MDD 6 PRN (Reason: pain) Qty: 30 0RF Continued amlodipine 5 mg tablet 5 mg PO QAM hydrochlorothiazide 25 mg tablet 25 mg PO QAM mesalamine 1.2 gram tablet,delayed release (DR/EC) 2.4 g PO QACDINNER atorvastatin 40 mg tablet 40 mg PO HS methimazole 5 mg tablet 5 mg PO EVERY OTHER DAY Rx Instructions: ALTERNATES WITH 7.5 MG Align 4 mg capsule 4 mg PO DAILY cholecalciferol (vitamin D3) 25 mcg (1,000 unit) capsule 50 mcg PO DAILY mecobalamin (vitamin B12) 500 mcg tablet,chewable 500 mcg PO DAILY multivitamin [Daily Multi-Vitamin] Tablet 1 tablet PO DAILY aspirin 81 m
[2022-12-11 14:00] VITALS: BP 109/79; PULSE 47; RESP 12; TEMP 36.9; O2SAT 97
== END 2022-12-11 19:00 | disposition home or self-care (01) ==
LOC: ANHSURGERY 05:49 → ANH2MED 11:31
PROVIDERS: Physician Assistant; Physician Assistant Surgical; PCP Internal Medicine; Visit Provider Orthopaedic Surgery
PROC: (CPT 23472; principal; 2022-12-10 07:30)
DX: M75.101 Unspecified rotator cuff tear or rupture of right shoulder, not specified as traumatic (principal); M19.011 Primary osteoarthritis, right shoulder; G89.18 Other acute postprocedural pain; I10 Essential (primary) hypertension; E78.5 Hyperlipidemia, unspecified; E05.90 Thyrotoxicosis, unspecified without thyrotoxic crisis or storm; K51.90 Ulcerative colitis, unspecified, without complications; Z85.528 Personal history of other malignant neoplasm of kidney; Z90.5 Acquired absence of kidney; Z85.42 Personal history of malignant neoplasm of other parts of uterus; Z79.82 Long term (current) use of aspirin
CPT/HCPCS: 23472; 64415; 36415; 73030; 80048; 80076; 83735; 84439; 84443; 84480; 85025; 86850; 86900; 86901; 97110; 97116; 97161; 97165; 97530; 97535; A4565; A9270; C1776; J0171; J0690; J1100; J1885; J2405; J2704; J2795; J3010; J3370; J7030; J7120

== ENCOUNTER 2023-08-15 06:45 | Emergency (ER) | payer MEDICARE, OTHER, SELFPAY ==
--- NOTE | ~2023-08-15 | CT_ITS ---
CT head without contrast Indication: Blunt trauma Technique: Serial scans were obtained through the brain without the administration of contrast. Dose reduction technique was used on this scan by utilizing automated exposure control and iterative recon struction technique. The dose-length product (DLP) was 605.33 mGy-cm. Findings: There is no evidence of intracranial hemorrhage, mass lesion, or acute infarct. The ventri cles and subarachnoid spaces are dilated, consistent with mild to moderate atrophy. Low attenuation regions are seen within the periventricular white matter bilaterally, likely representing changes fro m chronic microvascular ischemic disease. There is no evidence of edema, mass effect or midline shif t. The visualized paranasal sinuses and mastoid air cells are clear. Impression: No intracranial hemorrhage, mass, or acute infarct. Atrophy and chronic white matter changes, as above. Reviewed, dictated and finalized at location M. Impression: No intracranial hemorrhage, mass, or acute infarct. Atrophy and chronic white matter changes, as above.
--- NOTE | ~2023-08-15 | XR_ITS ---
EXAMINATION: XR shoulder RT min 2V DATE: 08/15/2023 09:01 INDICATION: Right shoulder pain. Fall. TECHNIQUE: 4 views of right shoulder were obtained. COMPARISON: Right shoulder radiographs 04/30/2023 FINDINGS: There is a reverse [id number] total right shoulder arthroplasty in near-anatomic align ment. No fracture. There is 5 mm lucency adjacent to the humeral component medially and proximally. A gain seen is a loose body in the axillary recess. There is severe osteoarthritis of the acromioclavic ular joint. IMPRESSION: 1. Total right shoulder arthroplasty with lucency adjacent to the humeral component, consistent with loosening versus infection. 2. Loose body in the axillary recess. 3. Severe acromioclavicular joint osteoarthritis. Reviewed, dictated and finalized at location A. IMPRESSION: 1. Total right shoulder arthroplasty with lucency adjacent to the humeral compo nent, consistent with loosening versus infection. 2. Loose body in the axillary recess. 3. Severe acromioclavicular joint osteoarthritis.
--- NOTE | ~2023-08-15 | CT_ITS ---
EXAMINATION: CT cervical spine wo con DATE: 08/15/2023 07:46 INDICATION: Neck injury. TECHNIQUE: Computed tomography (CT) of the cervical spine was performed without intravenous contrast. Automated exposure control and iterative reconstruction technique were employed. The dose-length pro duct was 178.81 mGy-cm. COMPARISON: None FINDINGS: There are nodules in the thyroid measuring up to 13 mm, likely not clinically significant. There is 2 mm retrolisthesis of C3 on C4. Vertebral body heights are normal. There is mildly decrease d disc height at C2-C3, C3-C4, and C4-C5, severely decreased disc height at C5-C6 and C6-C7, and mild ly decreased disc height at C7-T1. The following disc levels are specifically discussed: C2-C3: There is mild bilateral uncovertebral joint osteoarthritis. There is severe bilateral facet yesy int osteoarthritis. There is mild left neural foraminal stenosis. There is mild central canal stenosi s. C3-C4: There is moderate right and severe left uncovertebral joint osteoarthritis. There is severe bi lateral facet joint osteoarthritis. There is mild bilateral neural foraminal stenosis. There is mild central canal stenosis. C4-C5: There is mild right and moderate left uncovertebral joint osteoarthritis. There is severe bila teral facet joint osteoarthritis. There is mild bilateral neural foraminal stenosis. There is mild ce ntral canal stenosis. C5-C6: There is severe right and mild left uncovertebral joint osteoarthritis. There is severe bilate ral facet joint osteoarthritis. There is moderate right and mild left neural foraminal stenosis. Ther e is mild central canal stenosis. C6-C7: There is severe bilateral uncovertebral joint osteoarthritis. There is severe bilateral facet joint osteoarthritis. There is mild bilateral neural foraminal stenosis. There is mild central canal stenosis. C7-T1: There is mild bilateral uncovertebral joint osteoarthritis. There is severe bilateral facet yesy int osteoarthritis. There is mild bilateral neural foraminal stenosis. There is mild central canal st enosis. IMPRESSION: 1. No fracture. 2. Severe cervical spondylosis. Reviewed, dictated and finalized at location A.
[2023-08-15 06:44] VITALS: PULSE 97; RESP 12; TEMP 36.6; O2SAT 99
--- NOTE | 2023-08-15 06:51 | ECG_ITS ---
SEE SCANNED COPY FOR CONFIRMED REPORT MTDD
[2023-08-15 07:08] LABS: Basophils Percent Auto 0.4 % (0.2-1.2); Eosinophils Absolute Auto 0.1 K/mm3 (0-0.3); Eosinophils Percent Auto 1.9 % (0-4.4); Hematocrit 38.6 % (37.0-47.0); Hemoglobin 12.5 g/dL (12.0-15.0); Immature Granulocyte Absolute 0.03 K/mm3 (0.00-0.031); Immature Granulocyte Percent A 0.4 % (0-0.5); Lymphocytes Absolute Auto 0.86 K/mm3 (0.9-3.2); Lymphocytes Percent Auto 11.7 % (18.3-44.2); Mean Corpuscular HGB Conc 32.4 g/dl (32-36); Mean Corpuscular Hemoglobin 30.4 pg (26-34); Mean Corpuscular Volume 93.9 fl (80-100); Mean Platelet Volume 9.5 fl (7.4-10.4); Monocytes Absolute Auto 0.8 K/mm3 (0.1-0.6); Monocytes Percent Auto 10.6 % (2.6-8.5); Neutrophils Absolute Auto 5.5 K/mm3 (1.3-6.7); Platelet Count Result 215 k/mm3 (150-375); Red Blood Count 4.11 M/mm3 (4.2-5.4); Red Cell Distribution Width 14.7 % (11.5-14.5); White Blood Count 7.4 K/mm3 (4.5-10.0)
[2023-08-15 07:17] LABS: Alanine Aminotransferase 43 U/L (6-35); Albumin Level 3.7 g/dL (3.5-5.1); Alkaline Phosphatase 100 U/L (38-126); Anion Gap 4 mmol/L (4-12); Aspartate Amino Transferase 80 U/L (14-36); Blood Urea Nitrogen 14 mg/dL (7-17); Calcium 8.6 mg/dL (8.4-10.2); Carbon Dioxide 28 mmol/L (22-30); Chloride 106 mmol/L (98-107); Estimated CRCL calculation 79 ml/min; Estimated Glomerular Filt Rate > 60; Glucose 102 mg/dL (65-110); Potassium 3.1 mmol/L (3.4-5.0); Sodium 138 mmol/L (137-145)
[2023-08-15] MEDS: ACETAMINOPHEN 500 MG TABLET 1000 MG PO (07:31)
[2023-08-15] MEDS: LIDOCAINE 5% PATCH 1 PATCH TRANSDERM (07:32)
[2023-08-15 07:49] VITALS: BP 141/68; PULSE 64; RESP 13; O2SAT 100
[2023-08-15 07:56] LABS: Creatine Kinase 608 U/L (30-135)
[2023-08-15 08:01] VITALS: BP 135/64; PULSE 58
[2023-08-15 08:02] VITALS: BP 143/63; BP 143/71; PULSE 60; PULSE 70
[2023-08-15] MEDS: LACTATED RINGERS 1,000 ML 999 ML IV CONT (08:19)
--- NOTE | 2023-08-15 08:26 | ED.FALL ---
HPI - Fall General Chief Complaint: Fall Stated Complaint: GLF Time Seen by Provider: 08/15/23 06:57 History of Present Illness HPI Narrative: This is a 77-year-old female, with history of shoulder replacement, brought in by EMS from home after a fall 4 days ago. The patient states she was planning stool to take down tissue paper, when she fell. She states she landed on her right shoulder and may have struck her head. She did not lose consciousness was not able to get up for approximately 15 hours. She states she was helped to her feet by a home physical therapist. Since then she has had some neck stiffness and right shoulder pain rated 5/10. She was advised to seek evaluation by her nephew. She denies chest pain, shortness of breath, new weakness/numbness, nausea or vomiting. She has no other complaints at this time. Related Data Home Medications Medication Instructions Recorded Confirmed Bifidobacterium infantis 4 mg 4 mg PO DAILY 05/29/22 07/28/23 capsule (Align) amlodipine 5 mg tablet 5 mg PO QAM 05/29/22 07/28/23 aspirin 81 mg tablet,delayed 81 mg PO DAILY 05/29/22 07/28/23 release atorvastatin 40 mg tablet 40 mg PO HS 05/29/22 07/28/23 cholecalciferol (vitamin D3) 25 50 mcg PO DAILY 05/29/22 07/28/23 mcg (1,000 unit) capsule famotidine 20 mg tablet (Pepcid) 20 mg PO DAILY PRN Indigestion 05/29/22 07/28/23 hydrochlorothiazide 25 mg tablet 25 mg PO QAM 05/29/22 07/28/23 mecobalamin (vitamin B12) 500 mcg 500 mcg PO DAILY 05/29/22 07/28/23 chewable tablet mesalamine 1.2 gram tablet,delayed 2.4 g PO QACDINNER 05/29/22 07/28/23 release methimazole 5 mg tablet 5 mg PO EVERY OTHER DAY 05/29/22 07/28/23 multivitamin (Daily Multi-Vitamin 1 tablet PO DAILY 05/29/22 07/28/23 tablet) psyllium husk 3.4 gram/5.4 gram 1 tsp PO DAILY 05/29/22 07/28/23 oral powder (Metamucil) acetaminophen 500 mg capsule 500 mg PO Q6H PRN Pain 11/11/22 07/28/23 calcium 600 mg capsule 600 mg PO BID 11/11/22 07/28/23 ibuprofen 200 mg tablet (Advil) 400 mg PO QAM 11/11/22 07/28/23 methimazole 5 mg tablet 7.5 mg PO EVERY OTHER DAY 11/11/22 07/28/23 potassium chloride 10 mEq 20 meq PO QAM 11/11/22 07/28/23 tablet,extended release vit C 250 mg-vit E 90 mg-zinc 40 1 tablet PO BID 11/11/22 07/28/23 mg-copper 1 [id number] capsule (PreserVision AREDS-2) Allergies Allergy/AdvReac Type Severity Reaction Status Date / Time Sulfa (Sulfonamide Allergy Severe Itching, Verified 08/15/23 07:02 Antibiotics) N/V morphine AdvReac Severe LIGHTHEADED/PASSING Verified 08/15/23 07:02 OUT/N/V Review of Systems Review of Systems: All systems reviewed & are unremarkable except as noted in HPI and below (HPI) [facility] Past Medical History Medical History Arthritis Cancer of kidney (2012) Status post nephrectomy. Endometrial cancer (2014) Hyperlipidemia Hypertension Hyperthyroidism Kidney stones Ulcerative colitis Surgical History Surgical History History of arthroplasty of right knee (11/2004) History of carpal tunnel release History of cataract extraction with lens replacement History of cystoscopy History of hysterectomy History of left knee replacement (12/30/11) History of left nephrectomy (08/20/12) History of lithotripsy History of reverse total replacement of right shoulder joint (~12/10/22) History of total abdominal hysterectomy and bilateral salpingo-oophorectomy (2014) History of ureter stent Family History Family History Father Leukemia Mother Arthritis Social History Social History Social History: Surrogate medical decision maker: Dania Blankedna, sibling. Code status: Full code. Smoking status: Never smoker Second hand tobacco smoke exposure: No Alcohol intake: never Substanc
[2023-08-15 09:15] VITALS: BP 123/59; PULSE 52; RESP 13; O2SAT 100
[2023-08-15 09:22] LABS: Creatine Kinase 557 U/L (30-135)
[2023-08-15 10:30] VITALS: BP 139/61; PULSE 60; RESP 17; TEMP 36.5; O2SAT 100
== END 2023-08-15 10:32 | disposition home or self-care (01) ==
PROVIDERS: Emergency Medicine; Emergency Provider Preventive Medicine Aerospace Medicine; PCP Internal Medicine
DX: S49.91XA Unspecified injury of right shoulder and upper arm, initial encounter (principal); M54.2 Cervicalgia; R74.8 Abnormal levels of other serum enzymes; I10 Essential (primary) hypertension; E78.5 Hyperlipidemia, unspecified; E05.90 Thyrotoxicosis, unspecified without thyrotoxic crisis or storm; Z85.528 Personal history of other malignant neoplasm of kidney; Z87.442 Personal history of urinary calculi; Z90.5 Acquired absence of kidney; Z79.82 Long term (current) use of aspirin; Z96.653 Presence of artificial knee joint, bilateral; Z96.1 Presence of intraocular lens; Z98.49 Cataract extraction status, unspecified eye; Z90.710 Acquired absence of both cervix and uterus; Z96.611 Presence of right artificial shoulder joint; I45.9 Conduction disorder, unspecified; M19.011 Primary osteoarthritis, right shoulder; M47.812 Spondylosis without myelopathy or radiculopathy, cervical region; W17.89XA Other fall from one level to another, initial encounter
CPT/HCPCS: 36415; 70450; 72125; 73030; 80053; 82550; 85025; 93005; 96360; 99284; A9270; J7120

== ENCOUNTER 2023-10-08 15:53 | Emergency (ER) | payer MEDICARE, OTHER, SELFPAY ==
--- NOTE | ~2023-10-08 | CT_ITS ---
EXAMINATION: CT cervical spine wo con DATE: 10/08/2023 16:12 INDICATION: Fall with head injury TECHNIQUE: Computed tomography (CT) of the cervical spine was performed without intravenous contrast. Automated exposure control and iterative reconstruction technique were employed. The dose-length pro duct was 196.25 mGy-cm. COMPARISON: 08/15/2023 FINDINGS: Exaggerated cervical lordosis with 2 mm retrolisthesis C2 on C3 and C3 on C4. 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 Vertebral body heights are normal. No fractures. Severe disc height loss at C5-C6 and C6-C7 with mild disc height loss at remaining cervical levels. There is multilevel central canal stenosis throughout the cervical spine. 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 Th ere is also 2 mm anterolisthesis T3-T4. Moderate disc height loss at T1-T2 and severe disc height los s at T4-T8. There is multilevel severe cervical uncovertebral and facet upper thoracic facet osteoart hritis. This contributes to multilevel cervical neural foraminal stenosis. Multinodular goiter. Mild biapical pleural-parenchymal scarring. IMPRESSION: 1. No acute osseous abnormality. 2. Severe cervical and thoracic spondylosis. See prior report for level by level analysis of the cerv ical spondylosis. Reviewed, dictated and finalized at location B. IMPRESSION: 1. No acute osseous abnormality. 2. Severe cervical and thoracic spondylosis. See prior report for level by robert brunner analysis of the cervical spondylosis.
--- NOTE | ~2023-10-08 | CT_ITS ---
CT brain wo con Ordering provider: Sharda Dowd MD History: 78 years Female with . fall . Comparison: None. Technique: CT of the head without contrast. Radiation reduction technique utilized. DLP is 681 mGy.. FINDINGS: BRAIN PARENCHYMA AND CSF SPACES: Mild leukoaraiosis and diffuse cortical atrophy. Mild atheromatous d isease. No midline shift, mass effect or hemorrhage. The brain parenchyma and CSF spaces are otherwi se normal. VISUALIZED PARANASAL SINUSES: Well aerated. MASTOIDS: Well aerated. BONES: The bones appear intact. SOFT TISSUES: Visualized nasopharynx is normal. Superficial soft tissues are normal. IMPRESSION: No acute intracranial findings. Reviewed, dictated and finalized at location A.
--- NOTE | ~2023-10-08 | XR_ITS ---
XR_RIBSBI_CR Ordering provider: Radha Mendez History: . fall . Comparison: None. FINDINGS: BONES: No acute rib fracture. MEDIASTINUM: The cardiac silhouette is not enlarged. LUNGS: No effusions or infiltrates. No pneumothorax. SOFT TISSUES: Normal. Right shoulder arthroplasty. Left shoulder osteoarthritic changes. Degenerative changes of the spine. IMPRESSION: No acute osseous abnormality of the bilateral ribs. (Note: subtle/nondisplaced rib fractures can be o ccult on plain films and if there is continued clinical suspicion for rib fracture, recommend follow up CT chest.) Reviewed, dictated and finalized at location A. IMPRESSION: No acute osseous abnormality of the bilateral ribs. (Note: subtle/nondisplaced rib fractures can be occult on plain films and if there is continued clinical s uspicion for rib fracture, recommend follow up CT chest.)
--- NOTE | ~2023-10-08 | XR_ITS ---
XR hip BI 2V w AP pelvis Ordering provider: Radha Mendez APRN History: . fall . Comparison: None. FINDINGS: BONES: No acute fracture or dislocation. HIP JOINT SPACES: Bilateral mild hip osteoarthritic changes. SACROILIAC JOINT SPACES/LUMBAR SPINE: Bilateral sacroiliitis. Mild degenerative changes of the visual ized lower lumbar spine. PUBIC SYMPHYSIS: Pubic symphysitis. SOFT TISSUES: Normal. IMPRESSION: No acute osseous abnormality of the bilateral hips and pelvis. Bilateral sacroiliacs. Pubic symphysitis. Reviewed, dictated and finalized at location A.
[2023-10-08 15:55] VITALS: BP 118/58; PULSE 64; RESP 15; TEMP 36.6; O2SAT 100
--- NOTE | 2023-10-08 17:02 | ED.GENADULT ---
HPI - General Adult General Chief complaint: Fall <Radha Larson August, TOBACCO BALER - Last Filed: 10/08/23 17:11> Stated complaint: glf around 0500, hit head <Rdaha LewisKaren August, TOBACCO BALER - Last Filed: 10/08/23 17:11> Time Seen by Provider: 10/08/23 17:02 <Radha LewisKaren August, TOBACCO BALER - Last Filed: 10/08/23 17:11> Focused HPI: Gerri Bueno is a 78 y/o female who presents, with reports of having a ground level mechanical fall this morning at 0530 while ambulating with her walker. She did hit her head on the right side and her right hip. No LOC They called EMS, who helped her get up but she did not want to go to the hospital, her OT came to the house and called her PCP who told her to go get checked out. She does not take any blood thinners Abrasion to right side of head + pain to right hip GENERAL: Well-appearing, well-nourished, and in no acute distress. HEAD: Normocephalic, atraumatic. CHEST: Clear to auscultation. ?No respiratory distress. HEART: Regular rate and rhythm.? NEURO: ?Alert and oriented x3. Patient screened in triage and initial orders placed.? ?Additional care and disposition to be based upon?diagnostic testing and treatment. <Radha Neo August, TOBACCO BALER - Last Filed: 10/08/23 17:11> Focused HPI: Gerri Bueno is a 78 y/o female who presents, with reports of having a ground level mechanical fall this morning at 0530 while ambulating with her walker. She did hit her head on the right side and her right hip. No LOC They called EMS, who helped her get up but she did not want to go to the hospital, her OT came to the house and called her PCP who told her to go get checked out. She does not take any blood thinners Abrasion to right side of head + pain to right hip GENERAL: Well-appearing, well-nourished, and in no acute distress. HEAD: Normocephalic, atraumatic. CHEST: Clear to auscultation. ?No respiratory distress. HEART: Regular rate and rhythm.? NEURO: ?Alert and oriented x3. Patient screened in triage and initial orders placed.? ?Additional care and disposition to be based upon?diagnostic testing and treatment. <Veronica Murray PA-C - Last Filed: 10/08/23 19:27> Source: patient <Veronica Murray PA-C - Last Filed: 10/08/23 19:27> Mode of arrival: ambulatory <Veronica Murray PA-C - Last Filed: 10/08/23 19:27> Limitations: no limitations <Veronica Murray PA-C - Last Filed: 10/08/23 19:27> History of Present Illness HPI narrative: agree with above HPI. Patient denies any pain upon my evaluation. <Veronica Murray PA-C - Last Filed: 10/08/23 19:27> Related Data Home medications: Home Medications Medication Instructions Recorded Confirmed Bifidobacterium infantis 4 mg 4 mg PO DAILY 05/29/22 07/28/23 capsule (Align) amlodipine 5 mg tablet 5 mg PO QAM 05/29/22 07/28/23 aspirin 81 mg tablet,delayed 81 mg PO DAILY 05/29/22 07/28/23 release atorvastatin 40 mg tablet 40 mg PO HS 05/29/22 07/28/23 cholecalciferol (vitamin D3) 25 50 mcg PO DAILY 05/29/22 07/28/23 mcg (1,000 unit) capsule famotidine 20 mg tablet (Pepcid) 20 mg PO DAILY PRN Indigestion 05/29/22 07/28/23 hydrochlorothiazide 25 mg tablet 25 mg PO QAM 05/29/22 07/28/23 mecobalamin (vitamin B12) 500 mcg 500 mcg PO DAILY 05/29/22 07/28/23 chewable tablet mesalamine 1.2 gram tablet,delayed 2.4 g PO QACDINNER 05/29/22 07/28/23 release methimazole 5 mg tablet 5 mg PO EVERY OTHER DAY 05/29/22 07/28/23 multivitamin (Daily Multi-Vitamin 1 tablet PO DAILY 05/29/22 07/28/23 tablet) psyllium husk 3.4 gram/5.4 gram 1 tsp PO DAILY 05/29/22 07/28/23 oral powder (Metamucil) acetaminophen 500 mg capsule 500 mg PO Q6H PRN Pain 11/11/22 07/28/23 calcium 600 mg capsule 600 mg PO BID 11/11/22 07/28/23 ibuprofen 200 mg tablet (Advil) 400 mg PO QAM 11/11/22 07/28/23 methimazole 5 mg tablet 7.5 mg PO EVERY OTHER DAY 11/11/22 07/28/23 potassium chloride 10 mEq 20 meq PO QAM 11/11/22 07/28/23 tablet,extended release vit C 25
[2023-10-08 19:34] VITALS: BP 120/74; PULSE 69; RESP 20; O2SAT 98
== END 2023-10-08 19:35 | disposition home or self-care (01) ==
PROVIDERS: Emergency Provider Physician Assistant; PCP Internal Medicine
DX: S09.90XA Unspecified injury of head, initial encounter (principal); W18.30XA Fall on same level, unspecified, initial encounter; Z79.82 Long term (current) use of aspirin; Z85.528 Personal history of other malignant neoplasm of kidney; Z90.5 Acquired absence of kidney; E78.5 Hyperlipidemia, unspecified; I10 Essential (primary) hypertension; E05.90 Thyrotoxicosis, unspecified without thyrotoxic crisis or storm; Z96.653 Presence of artificial knee joint, bilateral; Z96.611 Presence of right artificial shoulder joint
CPT/HCPCS: 70450; 71110; 72125; 73521; 99284